=== PATIENT | female | born 1945 | race Caucasian/White ===

== ENCOUNTER → 2020-07-29 12:56 | Outpatient (CLI) | payer MEDICARE, OTHER, SELFPAY ==
--- NOTE | ~2020-07-29 | MM_ITS ---
EXAMINATION: MM screening lucila BI w sarah beth HISTORY: Screening TECHNIQUE: Craniocaudal and mediolateral oblique 3-D tomosynthesis images were obtained and synthetic 2-D images were generated. CAD analysis was submitted and interpreted. COMPARISON: Comparison to multiple prior studies sequentially, with oldest reviewed study dated 03/13. BREAST PARENCHYMAL COMPOSITION: There are scattered areas of fibroglandular density. FINDINGS: There is no evidence of suspicious mass, calcification, or architectural distortion to sugg est malignancy in either breast. There has been no suspicious interval change. IMPRESSION: 1. No mammographic evidence of malignancy. 2. Recommend routine screening mammography in one year. BI-RADS Category 1: Negative Reviewed, dictated and finalized at location A.
== END ==
PROVIDERS: PCP Family Medicine; Visit Provider Family Medicine
DX: Z12.31 Encounter for screening mammogram for malignant neoplasm of breast (principal)
CPT/HCPCS: 77063; 77067

== ENCOUNTER → 2020-10-31 10:28 | Outpatient (CLI) | payer MEDICARE, OTHER, SELFPAY ==
--- NOTE | ~2020-10-31 | XR_ITS ---
EXAMINATION: XR chest 2V 10/31/2020 10:37 INDICATION: Dyspnea PROCEDURE: 2 view chest COMPARISON: No prior studies for comparison. FINDINGS: The lungs are clear. The cardiomediastinal silhouette is within normal limits. There are no pleural effusions. There is no pneumothorax suspected. IMPRESSION: 1: NO ACUTE CARDIOPULMONARY DISEASE. Reviewed, dictated and finalized at location A. WELDER
== END ==
PROVIDERS: PCP Family Medicine; Visit Provider Family Medicine
DX: R06.00 Dyspnea, unspecified (principal)
CPT/HCPCS: 71046

== ENCOUNTER → 2021-08-24 13:30 | Outpatient (CLI) | payer MEDICARE, OTHER, SELFPAY ==
--- NOTE | ~2021-08-24 | MM_ITS ---
EXAMINATION: MM screening lucila BI w sarah beth HISTORY: Screening mammogram, history of right breast cancer TECHNIQUE: Craniocaudal and mediolateral oblique 3-D tomosynthesis images were obtained and synthetic 2-D images were generated. CAD analysis was submitted and interpreted. COMPARISON: 07/29/2020, 07/24/2019, 07/10/2018 BREAST PARENCHYMAL COMPOSITION: There are scattered areas of fibroglandular density. FINDINGS: Stable lumpectomy changes are noted in the upper outer quadrant of the right breast. There is no evidence of suspicious mass, calcification, or architectural distortion to suggest malignancy i n either breast. There has been no suspicious interval change. IMPRESSION: 1. No mammographic evidence of malignancy. 2. Recommend routine screening mammography in one year. BI-RADS Category 2: Benign finding(s). Reviewed, dictated and finalized at location A.
== END ==
PROVIDERS: PCP Family Medicine; Visit Provider Family Medicine
DX: Z12.31 Encounter for screening mammogram for malignant neoplasm of breast (principal)
CPT/HCPCS: 77063; 77067

== ENCOUNTER → 2022-02-28 09:04 | Outpatient (CLI) | payer MEDICARE, OTHER, SELFPAY ==
--- NOTE | ~2022-02-28 | XR_ITS ---
EXAMINATION: XR hip RT min 2V DATE: 02/28/2022 09:20 INDICATION: Right hip pain. TECHNIQUE: 2 views of right hip were obtained. COMPARISON: None. FINDINGS: Bone alignment is normal. No fracture. There is mild right hip osteoarthritis. IMPRESSION: 1. Mild right hip osteoarthritis. Reviewed, dictated and finalized at location A.
--- NOTE | ~2022-02-28 | XR_ITS ---
EXAMINATION: XR lumbar spine min 4V EXAM DATE: 02/28/2022 09:20 INDICATION: Low back pain TECHNIQUE: Lumber spine frontal, lateral, bilateral oblique projections. Coned down frontal and lat eral L5-S1 lumbar projections for interpretation. There is no prior study for comparison. FINDINGS: There is 3 mm anterolisthesis L2 on L3, 3 mm retrolisthesis L1 on L2. Moderate to sever e disc disease at all lumbar levels. There is severe mid and lower lumbar facet arthropathy. There ar e no acute fractures identified. There is mild thoracolumbar dextroscoliosis. Large endplate osteophy landy. Sacrum, sacroiliac joints, sacral arcuate lines are intact. No spondylolysis suspected. Paraspin al soft tissue is unremarkable. IMPRESSION: Moderate to severe lumbar spondylosis. Reviewed, dictated and finalized at location B.
== END ==
PROVIDERS: PCP Family Medicine; Visit Provider Family Medicine
DX: M25.551 Pain in right hip (principal); M54.50 Low back pain, unspecified; M47.816 Spondylosis without myelopathy or radiculopathy, lumbar region; M16.11 Unilateral primary osteoarthritis, right hip
CPT/HCPCS: 72110; 73502

== ENCOUNTER → 2022-08-27 17:15 | Outpatient (CLI) | payer MEDICARE, OTHER, SELFPAY ==
--- NOTE | ~2022-08-27 | MM_ITS ---
EXAMINATION: MM screening lucila BI w sarah beth HISTORY: Screening TECHNIQUE: Craniocaudal and mediolateral oblique 3-D tomosynthesis images were obtained and synthetic 2-D images were generated. CAD analysis was submitted and interpreted. COMPARISON: Comparison to multiple prior studies sequentially, with oldest reviewed study dated 04/29. BREAST PARENCHYMAL COMPOSITION: Breast composed of scattered areas of fibroglandular density FINDINGS: There is no evidence of suspicious mass, calcification, or architectural distortion to sugg est malignancy in either breast. There has been no suspicious interval change. IMPRESSION: 1. No mammographic evidence of malignancy. 2. Recommend routine screening mammography in one year. BI-RADS Category 1: Negative Reviewed, dictated and finalized at location A.
== END ==
PROVIDERS: PCP Family Medicine; Visit Provider Family Medicine
DX: Z12.31 Encounter for screening mammogram for malignant neoplasm of breast (principal)
CPT/HCPCS: 77063; 77067

== ENCOUNTER 2023-04-26 13:45 | Outpatient (CLI) | payer MEDICARE, OTHER, SELFPAY ==
--- NOTE | ~2023-04-26 | CT_ITS ---
EXAMINATION: CTA chest PE protocol DATE: 04/26/2023 14:16 INDICATION: Dyspnea. History of pulmonary embolus. TECHNIQUE: Computed tomography angiography (CTA) of the chest was performed with 100 mL Omnipaque-350 intravenous contrast timed to evaluate the pulmonary arteries. Coronal maximum intensity projection 3D-reconstructions were created by the technologist. Automated exposure control and iterative reconst ruction technique were employed. Exam dose: 723.21 mGy-cm total exam DLP. COMPARISON: October 31, 2020 chest 2 views FINDINGS: There is diagnostic contrast enhancement of the pulmonary arteries and no evidence of pulmo nary embolism. No thoracic aortic aneurysm or dissection is detected. There is cardiomegaly. No pericardial or pleur al effusion. No hilar or mediastinal mass lesion or lymphadenopathy. Minimal dependent atelectasis at the lower lobes, primarily on the right. Degenerative disc disease of the lower cervical spine and degenerative spurring of the thoracic and l umbar spine. No suspicious osteolytic or osteoblastic lesions are noted. IMPRESSION: No evidence of pulmonary embolism Reviewed, dictated and finalized at Location A. Reviewed, dictated and finalized at location []
[2023-04-26 14:07] LABS: Estimated Glomerular Filt Rate > 60
== END 2023-04-26 13:46 | disposition home or self-care (01) ==
PROVIDERS: PCP Family Medicine; Visit Provider Family Medicine
DX: R06.00 Dyspnea, unspecified (principal); Z86.711 Personal history of pulmonary embolism
CPT/HCPCS: 71275; Q9967

== ENCOUNTER 2023-05-15 08:46 | Outpatient (CLI) | payer MEDICARE, OTHER, SELFPAY ==
--- NOTE | 2023-05-15 11:32 | WPDPFTINT ---
PFT Procedure Performed PFT Procedure Performed Plethysmography (Lung Vol) Diffusing Cap (DLCO) Flow Vol Loop Spirometry w/o Bronchodil PFT Interpretation This is a pulmonary function test with spirometry, plethysmography and diffusing capacity. The test was performed and results interpreted in accordance with the 2019 and 2005 ATS/ERS Task Force guidelines respectively using the Global Lung Function Initiative-2012 reference equations. Patient demonstrated good effort and cooperation. Reproducibility criteria were met. The quality of the spirometry maneuver was Grade A. Findings: Spirometry: The contour the inspiratory and expiratory flow tracing are normal. The FVC is 2.18 L, 76% predicted. The FEV1 is 1.64 L, 75% predicted. The FEV1: FVC ratio 75%. Plethysmography: The total lung capacity is 4.44 L, 83% predicted. The functional residual capacity is 2.08 L, 67% predicted. The residual volume is 2.06 L, 85% predicted. Diffusion capacity: The diffusing capacity unadjusted for hemoglobin and carboxyhemoglobin is 16.3, 79% predicted. The diffusing capacity adjusted for alveolar volume is 4.64, 113% predicted. Impression: The spirometry is normal without evidence of an obstructive abnormality. The lung volumes are normal. The diffusing capacity is normal. There are no prior studies for comparison
== END 2023-05-15 08:47 | disposition home or self-care (01) ==
LOC: ANHPFT 08:47
PROVIDERS: PCP Family Medicine; Visit Provider Family Medicine
DX: R06.00 Dyspnea, unspecified (principal)
CPT/HCPCS: 94375; 94726; 94729

== ENCOUNTER 2023-08-01 12:45 | Outpatient (CLI) | payer MEDICARE, OTHER, SELFPAY ==
--- NOTE | ~2023-08-01 | XR_ITS ---
Clinical Indication: Dyspnea PA and lateral views of the chest: Comparison: 10/31/2020 Findings: The lungs are clear, without evidence of focal consolidation or pleural effusion. Cardiome diastinal silhouette is within normal limits. Bones and soft tissues are unremarkable. Impression: Normal chest. Reviewed, dictated and finalized at [facility]. Impression: Normal chest.
--- NOTE | ~2023-08-01 | NM_ITS ---
EXAMINATION: NM lung vent and perfusion DATE: 08/01/2023 13:24 INDICATION: Dyspnea. TECHNIQUE: 8.6 mm Xenon-133 was administered for ventilation images. 5.4 mCi Tc-99m MAA was administe red intravenously for perfusion images. Scintigraphic images of the chest were obtained. COMPARISON: Chest 2 views 08/01/2023, chest CT 04/26/2023 FINDINGS: Ventilation images demonstrate no defect. Perfusion images show a moderate-sized defect at right lung apex. IMPRESSION: 1. Nondiagnostic (intermediate probability for pulmonary embolism). Reviewed, dictated and finalized at location A.
== END 2023-08-01 12:46 | disposition home or self-care (01) ==
PROVIDERS: PCP Family Medicine; Visit Provider Internal Medicine
DX: R06.00 Dyspnea, unspecified (principal); R91.8 Other nonspecific abnormal finding of lung field
CPT/HCPCS: 71046; 78582; A9540; A9558

== ENCOUNTER 2023-09-03 09:28 | Outpatient (CLI) | payer MEDICARE, OTHER, SELFPAY ==
--- NOTE | ~2023-09-03 | NM_ITS ---
EXAMINATION: NM mayela stress w perfusion DATE: 09/03/2023 11:51 INDICATION: Chest pain TECHNIQUE: Rest images were obtained following intravenous administration of 9.2 mCi Tc99m tetrofosmi n (Myoview). The patient was infused intravenously with Lexiscan (Regadenoson). Then, 29.7 mCi Tc99m tetrofosmin (Myoview) was administered intravenously, and stress images were obtained in both supine and subsequently in prone position. Data was reconstructed into short axis and horizontal and vertica l long axis SPECT images. Gated SPECT images were also obtained. COMPARISON: None. FINDINGS: Small mild reversible perfusion defect at the apex consistent with ischemia. No other perfu casey defects identified. There is normal left ventricular chamber size, wall motion and ejection fra ction. Left ventricular ejection fraction measures 65%. IMPRESSION: 1. Small region of mild reversible ischemia at the apical segment. 2. Left ventricular ejection fraction measuring 65%. Reviewed, dictated and finalized at location A.
--- NOTE | 2023-09-03 10:08 | EST_ITS ---
Patient Info Name: Shell Olvera Age: 78 years : 1945 Gender: Female Ht: 66 in Wt: 233 lbs BSA: 2.27 m2 HR: 75 bpm BP: 133 / 86 mmHg Heart Rhythm: Sinus Rhythm Exam Date: 09/03/2023 10:24 AM Exam Location: [facility] Stress Patient Status: Outpatient Admit Date: 09/03/2023 Staff Ordering Physician: Lola Blanton MD Attending Provider: Lola Blanton MD Exercise Technologist: Radha Dumas CT Exercise Physician: Anders Mcfadden DO Exam Type: CA stress mayela w NM Study Info Indications R07.89 - Other chest pain A regadenoson stress test was performed. Summary 1. 1. Negative lexiscan stress test for ischemic ST changes by ECG criteria. 2. 2. Stable hemodynamics throughout the test. 3. 3. Nuclear scan to follow and will be reported separately. Please correlate with it. 4. 4. Patient informed of the above results. Protocol: Lexiscan Stress ECG Details Stage: REST Duration (min): 1 min : 14 sec HR (bpm): 73 SBP (mmHg): 133 DBP (mmHg): 86 Stage: REST Duration (min): 9 min : 29 sec HR (bpm): 70 SBP (mmHg): 133 DBP (mmHg): 86 Stage: STAGE 1 Duration (min): 1 min : 0 sec HR (bpm): 90 SBP (mmHg): 108 DBP (mmHg): 72 Stage: RECOVERY Duration (min): 1 min : 0 sec HR (bpm): 91 SBP (mmHg): 108 DBP (mmHg): 72 Stage: RECOVERY Duration (min): 2 min : 0 sec HR (bpm): 94 SBP (mmHg): 108 DBP (mmHg): 72 Stage: RECOVERY Duration (min): 3 min : 0 sec HR (bpm): 93 SBP (mmHg): 105 DBP (mmHg): 72 Stage: RECOVERY Duration (min): 3 min : 3 sec HR (bpm): 92 SBP (mmHg): 105 DBP (mmHg): 72 Rest HR: 70 bpm Peak HR: 95 bpm Rest Sys BP: 133 mmHg Peak Sys BP: 108 mmHg Max Pred HR: 143 bpm % Max Pred HR: 66 % Target HR: 122 bpm Max RPP: 10,260 bpm*mmHg Termination Reason: Completed protocol Cardiac Symptoms: Shortness of breath Total Time: 1 min : 0 sec Rest Lobo BP: 86 mmHg Peak Lobo BP: 72 mmHg Total Dose: 0.4 mg Resting ECG Sinus rhythm, delayed precordial R/S transition, low voltage in precordial leads. Stress ECG No ST changes. Arrhythmias None. Report Signatures
== END 2023-09-03 09:29 | disposition home or self-care (01) ==
PROVIDERS: PCP Family Medicine; Visit Provider Family Medicine
DX: R06.09 Other forms of dyspnea (principal); R07.9 Chest pain, unspecified; I99.8 Other disorder of circulatory system
CPT/HCPCS: 78452; 93017; A9502; J2785

== ENCOUNTER 2023-11-07 12:32 | Outpatient (CLI) | payer MEDICARE, OTHER, SELFPAY | END 2023-11-07 12:33 | disposition home or self-care (01) | LOC: ANHPFT 12:33 | PROVIDERS: PCP Family Medicine | DX: J45.20 Mild intermittent asthma, uncomplicated (principal) | CPT/HCPCS: 94618 ==

== ENCOUNTER → 2023-11-30 10:09 | Outpatient (CLI) | payer MEDICARE, OTHER, SELFPAY ==
--- NOTE | ~2023-11-30 | MM_ITS ---
EXAMINATION: MM screening lucila BI w sarah beth HISTORY: Screening TECHNIQUE: Craniocaudal and mediolateral oblique 3-D tomosynthesis images were obtained and synthetic 2-D images were generated. CAD analysis was submitted and interpreted. COMPARISON: Comparison to multiple prior studies sequentially, with oldest reviewed study dated 07/10. BREAST PARENCHYMAL COMPOSITION: Breast composed of scattered areas of fibroglandular density FINDINGS: There is no evidence of suspicious mass, calcification, or architectural distortion to sugg est malignancy in either breast. There has been no suspicious interval change. IMPRESSION: 1. No mammographic evidence of malignancy. 2. Recommend routine screening mammography in one year. BI-RADS Category 1: Negative Reviewed, dictated and finalized at location A. ATTENDANT
== END ==
PROVIDERS: PCP Family Medicine; Visit Provider Family Medicine
DX: Z12.31 Encounter for screening mammogram for malignant neoplasm of breast (principal)
CPT/HCPCS: 77063; 77067

== ENCOUNTER 2024-04-17 09:30 | Outpatient (RCR) | payer MEDICARE, OTHER, SELFPAY ==
[2023-12-13 11:32] VITALS: BP 130/82; PULSE 90; RESP 18; O2SAT 96
[2023-12-13 11:53] VITALS: PULSE 92
== END 2024-04-17 14:44 | disposition home or self-care (01) ==
LOC: ANHCPREHAB 09:30
PROVIDERS: PCP Family Medicine
DX: J45.20 Mild intermittent asthma, uncomplicated (principal)
CPT/HCPCS: 94625; G0239

== ENCOUNTER 2024-04-27 12:52 | Outpatient (CLI) | payer MEDICARE, OTHER, SELFPAY ==
--- NOTE | 2024-04-27 15:32 | WPDSIXMINUTE ---
Six Minute Walk Procedure Procedure Performed Pulmonary Stress Test (6 min walk) Six Minute Walk Six Minute Walk: This is a 6 minute walk test. The test was performed and interpreted in accordance with the 2014 ERS/ATS task force guidelines. Of note, patient used walking sticks during the test. Findings: The patient's resting room air oxygen saturation measured by pulse oximetry was 95% and heart rate was 80 bpm. Patient ambulated for 244 meters and oxygen saturation remained 87 to 95%. Heart rate at the end of the study was 119 bpm. The patient did qualify for supplemental oxygen with ambulation and recommend formal home O2 assessment to determine oxygen requirements. In comparison to 6 minute walk on 11/07/2023 the patient is a sena oxygen saturation has decreased from 90-87 and the patient is ambulatory distance has decreased from 427 meters to 244 m.
== END 2024-04-27 12:53 | disposition home or self-care (01) ==
LOC: ANHPFT 12:54
PROVIDERS: PCP Family Medicine
DX: R53.83 Other fatigue (principal)
CPT/HCPCS: 94618

== ENCOUNTER 2025-01-22 11:44 | Outpatient (CLI) | payer MEDICARE, OTHER, SELFPAY ==
--- NOTE | ~2025-01-22 | MM_ITS ---
EXAMINATION: MM screening lucila BI w sarah beth HISTORY: Screening. Personal history of right-sided breast cancer, diagnosed [address] lumpectomy radiation leading to size asymmetry. TECHNIQUE: Craniocaudal and mediolateral oblique 3-D tomosynthesis images were obtained and synthetic 2-D images were generated. CAD analysis was submitted and interpreted. COMPARISON: 11/30/2023 and dating back to 07/29/2020 BREAST PARENCHYMAL COMPOSITION: There are scattered areas of fibroglandular density. FINDINGS: Punctate and bulky calcifications are detected bilaterally (right greater than left), stabl e and benign in appearance. Punctate calcifications detected bilaterally, vascular in origin and benign in appearance. Stable parenchymal pattern without suspicious microcalcifications, architectural distortion, discrete masses or significant asymmetry. IMPRESSION: 1. No mammographic/tomographic evidence of malignancy. 2. Recommend routine screening mammography in one year. BI-RADS Category 2: Benign finding(s). Reviewed, dictated and finalized at location A. E PLANNER
== END 2025-01-22 11:45 | disposition home or self-care (01) ==
PROVIDERS: PCP Family Medicine; Visit Provider Family Medicine
DX: Z12.31 Encounter for screening mammogram for malignant neoplasm of breast (principal)
CPT/HCPCS: 77063; 77067